=== PATIENT | male | born 1975 | race Caucasian/White ===

== ENCOUNTER 2020-12-26 16:33 | Emergency (ER) | payer OTHER ==
[2020-12-26 16:55] VITALS: BP 115/77; PULSE 106; TEMP 98.2; BMI 21.2
[2020-12-26] MEDS ORDERED: DIPHTH,PERTUSS(ACELL),TET 0.5 ML DISP.SYRIN IM ONE ×2 (17:56→18:01)
== END 2020-12-26 18:06 | disposition home or self-care (01) ==
LOC: JERFT 16:33
PROC: 3E0234Z Introduction of Serum, Toxoid and Vaccine into Muscle, Percutaneous Approach (ICD-10-PCS; principal; 2020-12-26)
DX: S51.812A Laceration without foreign body of left forearm, initial encounter (principal)
CPT/HCPCS: 90471; 90715; 99284-25